=== PATIENT | male | born 1965 | race Caucasian/White ===

== ENCOUNTER 2019-07-15 17:49 | Emergency (ER) | payer OTHER, MEDICAID ==
[~2019-07-15] VITALS: Ht 165.1 cm; Wt 72.6 kg
[2019-07-15 20:42] VITALS: BP 139/70
== END 2019-07-15 21:24 | disposition home or self-care (01) ==
LOC: ER 17:49 → EDBD 17:49 → ER 21:24
DX: J06.9 Acute upper respiratory infection, unspecified (principal); B34.9 Viral infection, unspecified